=== PATIENT | female | born 1960 | race Caucasian/White ===

== ENCOUNTER 2017-05-31 12:15 | Emergency (ER) | END 2017-05-31 16:17 | disposition home or self-care (01) ==

== ENCOUNTER 2017-11-18 08:56 | Emergency (ER) | END 2017-11-18 10:25 | disposition home or self-care (01) ==

== ENCOUNTER 2017-12-08 10:56 | Emergency (ER) | END 2017-12-08 13:43 | disposition home or self-care (01) ==